=== PATIENT | female | born 1985 | race Caucasian/White ===

== ENCOUNTER 2025-01-29 14:43 | Emergency (ER) | payer SELFPAY ==
[2025-01-29 14:48] VITALS: BP 109/82
[2025-01-29 14:52] VITALS: BP 109/82
[2025-01-29 15:00] VITALS: BP 107/73
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
== END 2025-01-29 18:01 | disposition home or self-care (01) ==
LOC: EMR 14:43
PROVIDERS: EMERGENCY PHYSICIAN Student in an Organized Health Care Education/Training Program
DX: Z04.1 Encounter for examination and observation following transport accident (principal); F12.90 Cannabis use, unspecified, uncomplicated; F17.200 Nicotine dependence, unspecified, uncomplicated; V89.2XXA Person injured in unspecified motor-vehicle accident, traffic, initial encounter
CPT/HCPCS: 99282